=== PATIENT | male | born 1985 | race Two or more races ===

== ENCOUNTER 2022-04-25 12:47 | Emergency (ER) | payer MEDICAID, OTHER ==
[~2022-04-25] VITALS: Ht 170.2 cm; Wt 109.2 kg
[2022-04-25 14:02] VITALS: BP 141/81
[2022-04-25] MEDS ORDERED: IBUP800T27 PO (14:48)
== END 2022-04-25 14:53 | disposition home or self-care (01) ==
LOC: ER 12:47
DX: M23.91 Unspecified internal derangement of right knee (principal)
CPT/HCPCS: 73562

== ENCOUNTER 2022-05-17 11:20 | Emergency (ER) | payer MEDICAID ==
[~2022-05-17] VITALS: Ht 182.9 cm; Wt 111.6 kg
[~2022-05-17 11:20] MED LIST: IBUP800T27 PO
[2022-05-17 14:33] VITALS: BP 159/97
== END 2022-05-17 14:52 | disposition home or self-care (01) ==
LOC: ER 11:20
DX: G47.30 Sleep apnea, unspecified (principal); I10 Essential (primary) hypertension; Z79.1 Long term (current) use of non-steroidal anti-inflammatories (NSAID)